=== PATIENT | female | born 1985 | race Caucasian/White ===

== ENCOUNTER 2019-01-12 13:47 | Outpatient (REF) | payer MEDICAID, SELFPAY ==
[2019-01-12 19:40] LABS: COMMENT (LAB VIEW ONLY) 50.22 mg/dL; Microalb ug/mg Crea 3.8 ug/mg Cr
== END 2019-01-12 14:07 ==
LOC: NCHCN 13:47
PROVIDERS: PCP Physician Assistant Medical; Visit Provider Nurse Practitioner Family
DX: E10.9 Type 1 diabetes mellitus without complications (principal)
CPT/HCPCS: 82043; 82570

== ENCOUNTER 2019-05-12 13:40 | Outpatient (CLI) | payer MEDICAID, SELFPAY ==
[2019-05-12 14:11] LABS: Abs Immature Grans 0.01 k/cumm (0.0-0.09); Absolute Basophil Count 0.02 k/cumm (0.0-0.2); Absolute Eosinophil Count 0.18 k/cumm (0.0-0.7); Absolute Lymphocyte Count 2.12 k/cumm (1.2-3.4); Absolute Monocyte Count 0.37 k/cumm (0.11-0.7); Absolute Neutrophil Count 5.02 k/cumm (1.2-6.7); Basophils % 0.3; Eosinophils % 2.3; HGB 12.5 g/dL (12.0-15.5); Immature Grans % 0.1; Lymphocytes % 27.5; Mean Corp. HGB Concentration 33.8 g/dL (32.0-36.0); Mean Corpuscular Hemoglobin 28.7 pg (27.0-33.0); Mean Corpuscular Volume 85.1 fL (80-95); Mean Platelet Volume 10.3 fL (8.0-11.0); Monocytes % 4.8; Platelet Count 281 x1000/uL (130-400); RBC 4.35 m/cumm (4.00-5.20); RBC Distribution Width 13.2 % (11.7-14.6); White Blood Cell Count 7.72 k/cumm (4.4-10.8)
[2019-05-12 14:21] LABS: Hemoglobin A1C 7.2 % (4.5-6.2)
[2019-05-12 15:04] LABS: Glucose 57 mg/dL (70-100); TSH (W/Ref FT4) 4.51 uIU/mL (0.36-3.74)
[2019-05-12 15:25] LABS: FREE T4 0.81 ng/dL (0.76-1.46)
[2019-05-13 10:41] LABS: HIV-1/2 Ag & Ab Screen Negative (NEGAT); Hepatitis B Surface Ag Negative (NEGAT); Hepatitis C Ab w Rflx HCV PCR Negative (NEGAT)
[2019-05-13 11:06] LABS: Rubella IgG Ab (UVM) Positive; Syphilis Serology (RPR) Negative (Negative); Varicella IgG Antibody Positive
== END 2019-05-12 14:00 ==
PROVIDERS: PCP Nurse Practitioner Family; Visit Provider Nurse Practitioner Family
DX: Z32.01 Encounter for pregnancy test, result positive (principal); Z11.3 Encounter for screening for infections with a predominantly sexual mode of transmission; Z13.1 Encounter for screening for diabetes mellitus; Z11.4 Encounter for screening for human immunodeficiency virus [HIV]; Z11.59 Encounter for screening for other viral diseases; Z01.84 Encounter for antibody response examination
CPT/HCPCS: 36415; 80055; 82947; 86787; 86803; 86850; 86900; 86901; 87340; 87389; 83036; 84439; 84443; 86592; 86762

== ENCOUNTER 2019-11-19 09:48 | Outpatient (CLI) | payer MEDICAID, SELFPAY | END 2019-11-19 10:08 | PROVIDERS: PCP Nurse Practitioner Family; Visit Provider Obstetrics & Gynecology | DX: R69 Illness, unspecified (principal) ==